=== PATIENT | male | born 1985 | race Caucasian/White ===

== ENCOUNTER 2017-01-21 07:21 | Emergency (ER) | payer OTHER ==
[2017-01-21 07:33] VITALS: BP 110/59; PULSE 80; RESP 20; TEMP 97.7
[2017-01-21] MEDS ORDERED: IBUPROFEN 800 MG TAB PO STA (07:47)
--- NOTE | 2017-01-21 07:54 | ED ---
Lower Extremity Injury HPI - General Chief Complaint: Extremity Injury, Lower Stated Complaint: right knee pain Time Seen by Provider: 01/21/17 07:40 Source: patient, RN notes reviewed Mode of arrival: ambulatory Limitations: no limitations - History of Present Illness Initial Comments: This is a 31-year-old male history of right ankle surgery who states he was chasing his dog last night when he felt a pop in his right knee he didn't think much of it but states last evening he started developing pain to the medial aspect of the anterior knee and 3 having a more pain. He states this morning he has moderate to severe pain sharp in nature it actually increases when he dorsiflexes right foot. He denies any foot ankle injury anything above or below the knee. He has no other injuries reported no other pain. He did not take any pain medication this morning. MD Complaint: knee injury - Related Data Home Medications Medication Instructions Recorded Confirmed HYDROcodone/APAP 10-325MG [[place] 1 tab PO QID 10/14/13 01/21/17 10-325] Ibuprofen [Motrin] 800 mg PO TID PRN 01/21/17 01/21/17 Loratadine [Claritin] 10 mg PO DAILY 01/21/17 01/21/17 Previous Rx's Medication Instructions Recorded Ibuprofen 800 mg PO Q6HR PRN #20 tablet 01/21/17 Allergies Allergy/AdvReac Type Severity Reaction Status Date / Time bee pollen [Bee Pollen] Allergy Unknown Verified 01/21/17 07:58 Review of Systems ROS Statement: Those systems with pertinent positive or pertinent negative responses have been documented in the HPI. ROS Other: All systems not noted in ROS Statement are negative. Past Medical History Additional Past Medical History / Comment(s): arthritis. carpal tunnel History of Any Multi-Drug Resistant Organisms: None Reported Past Surgical History: Orthopedic Surgery Additional Past Surgical History / Comment(s): ankle Past Psychological History: No Psychological Hx Reported Smoking Status: Current every day smoker Past Alcohol Use History: None Reported Past Drug Use History: Marijuana General Exam - General Exam Comments Initial Comments: This is a well-developed well-nourished awake alert oriented 3 male Limitations: no limitations General appearance: alert, in no apparent distress Head exam: Present: atraumatic, normocephalic, normal inspection Eye exam: Present: normal appearance, PERRL, EOMI. Absent: scleral icterus, conjunctival injection, periorbital swelling ENT exam: Present: normal exam, mucous membranes moist Neck exam: Present: normal inspection. Absent: tenderness, meningismus, lymphadenopathy Extremities exam: Present: normal inspection, tenderness, normal capillary refill, other (Tenderness palpation over the anterior medial right knee and some lateral tenderness. No step-off or crepitation no ballottement of the patella. Some mild tenderness of the posterior aspect of the knee to palpation no definite effusions noted.). Absent: full ROM, pedal edema Back exam: Present: full ROM Neurological exam: Present: alert, oriented X3, CN II-XII intact Psychiatric exam: Present: normal affect, normal mood Skin exam: Present: warm, dry, intact, normal color. Absent: rash Course Vital Signs 01/21/17 07:32 Temperature 97.7 F Pulse Rate 80 Respiratory 20 Rate Blood Pressure 110/59 O2 Sat by Pulse 100 Oximetry Medical Decision Making - Medical Decision Making I did discuss the findings with patient he presents with exam consistent with a knee sprain. He will be given Garrett wrap he was offered a knee immobilizer but states he can't tolerate using that I did recommend a knee brace that he can get at any pharmacy. 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 - Radiology Data Radiology results: report reviewed (I did review the imaging and reports no acute findings.), image reviewed Disposition Clinical Impression: Right knee sprain Disposition: HOME SELF-CARE Condition: Good Instructions: Knee Sprain (ED) Prescriptions: Ibuprofen 800 mg PO Q6HR PRN #20 tablet PRN Reason: Pain Referrals: Ana M Farris DO [Primary Care Provider] - 1-2 days Sean Tomlin MD [Medical Doctor] - 1-2 days
--- NOTE | 2017-01-21 08:01 | XR ---
EXAMINATION TYPE: XR knee complete RT DATE OF EXAM: 01/21/2017 CLINICAL HISTORY: Fall off porch injury with right knee pain. TECHNIQUE: Three views of the right knee are obtained. COMPARISON: None. FINDINGS: There is no acute fracture/dislocation evident in right knee. The tri-compartment joint s paces appear within normal limits. The overlying soft tissue appears unremarkable. IMPRESSION: There is no acute fracture or dislocation in the right knee.
== END 2017-01-21 08:16 | disposition home or self-care (01) ==
LOC: EC 07:21
DX: S83.91XA Sprain of unspecified site of right knee, initial encounter (principal); F17.200 Nicotine dependence, unspecified, uncomplicated; Z79.891 Long term (current) use of opiate analgesic; Z79.899 Other long term (current) drug therapy; Z91.030 Bee allergy status; Y93.39 Activity, other involving climbing, rappelling and jumping off
CPT/HCPCS: 99283

== ENCOUNTER 2017-06-15 17:24 | Emergency (ER) | payer OTHER ==
[2017-06-15 17:34] VITALS: BP 131/60; PULSE 78; RESP 18; TEMP 97.6
--- NOTE | 2017-06-15 17:58 | XR ---
EXAMINATION TYPE: XR elbow complete RT DATE OF EXAM: 06/15/2017 CLINICAL HISTORY: Right elbow pain after injury TECHNIQUE: Frontal, lateral and oblique images of the right elbow are obtained. COMPARISON: None FINDINGS: There is no acute fracture/dislocation evident in the right elbow. No abnormal fat pad si gns are seen. The overlying soft tissue appears unremarkable. 1.1 cm oval sclerotic lesion within th e proximal radius is seen with well-defined borders and a narrow zone of transition. This could repre sent a bone island and appears intramedullary however other etiologies are possible. IMPRESSION: There is no acute fracture or dislocation in the right elbow. Nonspecific sclerotic lesi on within the proximal right radius appearing intramedullary and also appearing nonaggressive. Furthe r evaluation MRI could be performed on a nonemergent basis..
--- NOTE | 2017-06-15 18:02 | ED ---
General Adult HPI - General Chief complaint: Extremity Injury, Upper Stated complaint: rt elbow injury Time Seen by Provider: 06/15/17 17:38 Source: patient, RN notes reviewed Mode of arrival: ambulatory Limitations: no limitations - History of Present Illness Initial comments: 31-year-old male presents to the emergency department for a chief complaint of right elbow pain. Patient states that about 3 weeks ago he was walking when he tripped and fell on his right elbow. Patient states it is painful at this time but the pain has mostly resolved. He states he has no pain with range of motion of the right elbow. However it appears more swollen to him and he is painful if he hits at the right way. Patient states he just wants to know if he fractured the elbow. Patient denies any pain in the wrists or shoulders. Patient has a history of rheumatoid arthritis. Patient denies any other complaints at this time including shortness of breath, chest pain, abdominal pain, fevers, or nausea vomiting. - Related Data Home Medications Medication Instructions Recorded Confirmed No Known Home Medications [No 06/15/17 06/15/17 Known Home Medications] Allergies Allergy/AdvReac Type Severity Reaction Status Date / Time bee pollen [Bee Pollen] Allergy Unknown Verified 06/15/17 17:46 Review of Systems ROS Statement: Those systems with pertinent positive or pertinent negative responses have been documented in the HPI. ROS Other: All systems not noted in ROS Statement are negative. Past Medical History Past Medical History: No Reported History Additional Past Medical History / Comment(s): arthritis. carpal tunnel History of Any Multi-Drug Resistant Organisms: None Reported Past Surgical History: Orthopedic Surgery Additional Past Surgical History / Comment(s): ankle Past Psychological History: No Psychological Hx Reported Smoking Status: Current every day smoker Past Alcohol Use History: None Reported Past Drug Use History: Marijuana General Exam Limitations: no limitations Respiratory exam: Present: normal lung sounds bilaterally. Absent: respiratory distress, wheezes, rales, rhonchi, stridor Cardiovascular Exam: Present: regular rate, normal rhythm, normal heart sounds. Absent: systolic murmur, diastolic murmur, rubs, gallop, clicks Extremities exam: Present: full ROM (Of the elbows bilaterally), normal capillary refill (Refill less than 2 seconds in the right upper extremity), joint swelling (Slight joint swelling noted on the right elbow). Absent: tenderness (Slight point tenderness to the right olecranon.), pedal edema, calf tenderness Course Vital Signs 06/15/17 17:33 Temperature 97.6 F Pulse Rate 78 Respiratory 18 Rate Blood Pressure 131/60 O2 Sat by Pulse 98 Oximetry Medical Decision Making - Medical Decision Making 31-year-old male presents the emergency department for a chief complaint of right elbow pain. Patient states he fell onto his elbow about 3 weeks ago. He says the pain is mostly resolved however he has noticed some swelling and has point tenderness of the right elbow. He wants to make sure it is not broken. He does not want to be prescribed anything. Neurovascular intact in the right upper extremity. X-ray of the right elbow was ordered. X-ray of the right elbow demonstrates no acute fracture or dislocation. There is a nonspecific sclerotic lesion within the proximal right radius appearing intramedullary and nonaggressive. patient will be referred to orthopedics. In the meantime he will take ibuprofen for pain relief and was educated on the Rice method of therapy. He will return to the emergency department if symptoms worsen. Otherwise he will follow-up with orthopedics and primary care in 1-2 days. Disposition Clinical Impression: Elbow pain Disposition: HOME SELF-CARE Condition: Good Instructions: RICE Therapy (ED) Additional Instructions: Please follow up with orthopedics in one to 2 days. In the meantime, use ibuprofen for pain relief and follow the rice method of therapy as discussed. Please return to the emergency department if you have worsening symptoms. Referrals: None,Stated [REFERRING] - 1-2 days Anna Reyes, PAC [PHYSICIAN POLITICAL AIDE] - 1-2 days
== END 2017-06-15 18:29 | disposition home or self-care (01) ==
LOC: EC 17:24
DX: M25.521 Pain in right elbow (principal); F17.200 Nicotine dependence, unspecified, uncomplicated; Z91.030 Bee allergy status; W01.0XXA Fall on same level from slipping, tripping and stumbling without subsequent striking against object, initial encounter; Y93.01 Activity, walking, marching and hiking
CPT/HCPCS: 99283

== ENCOUNTER 2017-06-16 13:13 | Emergency (ER) | payer OTHER ==
[2017-06-16 13:17] VITALS: RESP 16
--- NOTE | 2017-06-16 13:47 | ED ---
Psych HPI - General Chief Complaint: Psychiatric Symptoms Stated Complaint: suicidal Time Seen by Provider: 06/16/17 13:19 Source: patient Mode of arrival: ambulatory - History of Present Illness Initial Comments: Is a 31-year-old male who comes emergency Department for suicidal ideation and depression. The patient states that his left him 2 days ago and he has not been able to speak with her and is been very upset about that. He states that he attempted to hang himself with a sweater last night however stopped himself when he heard his kid crying. He states he is not currently being treated for depression however did sign up to see a therapist because of some anger issues. He went there today and was recommended to come to the hospital. The patient does not take any medications at this time. He does have a history of suicide attempt in the past however no inpatient hospitalizations. He didn't lose a child when she was 6 years old in 2011. He's had some depression issues because of that as well. He comes here for psychiatric evaluation. Denies any drinking or drug use today. Does use marijuana regularly. - Related Data Home Medications Medication Instructions Recorded Confirmed Ibuprofen [Motrin] 800 mg PO BID 06/16/17 06/16/17 Loratadine [Claritin] 10 mg PO DAILY 06/16/17 06/16/17 Allergies Allergy/AdvReac Type Severity Reaction Status Date / Time bee pollen [Bee Pollen] Allergy Unknown Verified 06/16/17 13:17 Review of Systems ROS Statement: Those systems with pertinent positive or pertinent negative responses have been documented in the HPI. ROS Other: All systems not noted in ROS Statement are negative. Past Medical History Past Medical History: No Reported History Additional Past Medical History / Comment(s): arthritis. carpal tunnel History of Any Multi-Drug Resistant Organisms: None Reported Past Surgical History: Orthopedic Surgery Additional Past Surgical History / Comment(s): ankle Past Psychological History: No Psychological Hx Reported Smoking Status: Current every day smoker Past Alcohol Use History: None Reported Past Drug Use History: Marijuana General Exam - General Exam Comments Initial Comments: Constitutional: Awake alert Appears comfortable Head: Normocephalic atraumatic Eyes: no conjunctival injection No scleral icterus EOMI Neck: No JVD Supple, no carotid bruits, no neck tenderness Heart: Regular rate rhythm normal S1-S2 no murmurs Lungs: Clear to auscultation bilaterally No wheezing No rales Abdomen: Soft nondistended nontender Extremities: Non edematous DP pulses intact Radial pulses intact Neuro: A&Ox3 No focal neurologic deficits Psych: Depressed, tearful, suicidal ideation with a plan Limitations: no limitations Course Vital Signs 06/16/17 06/16/17 13:16 15:31 Temperature 97.6 F 97.8 F Pulse Rate 77 72 Respiratory 16 16 Rate Blood Pressure 124/56 128/80 O2 Sat by Pulse 99 98 Oximetry Medical Decision Making - Medical Decision Making This is a 31-year-old male came in emergency department for suicidal ideation. The patient was evaluated by [facility] who stated that they did not feel that this was a suicide attempt because of depression. They stated that it was circumstantial and do not feel that this is something that he would likely repeat. They stated that they spoke with him at length and he feels comfortable going home. He contracted for safety and is going to stay with his brother. He's got his establish follow-up with his therapist and also is going to see his psychiatrist next week and was instructed to return emergency Department if he has any worsening thoughts or feelings. All questions were answered. - Lab Data Lab Results 06/16/17 Range/Units 14:19 Urine Opiates Screen Not Detected (NotDetected) Ur Oxycodone Screen Not Detected (NotDetected) Urine Methadone Screen Not Detected (NotDetected) Ur Propoxyphene Screen Not Detected (NotDetected) Ur Barbiturates Screen Not Detected (NotDetected) U Tricyclic Antidepress Not Detected (NotDetected) Ur Phencyclidine Scrn Not Detected (NotDetected) Ur Amphetamines Screen Not Detected (NotDetected) U Methamphetamines Scrn Not Detected (NotDetected) U Benzodiazepines Scrn Not Detected (NotDetected) Urine Cocaine Screen Not Detected (NotDetected) U Marijuana (THC) Screen Detected H (NotDetected) Disposition Clinical Impression: Depression, Adjustment reaction Disposition: HOME SELF-CARE Condition: Stable Instructions: Depression (ED) Additional Instructions: Follow up with your psychiatrist next week. Return if you feel like you are having more suicidal thoughts or any worsening symptoms. Referrals: Ana M Farris DO [Primary Care Provider] - 1-2 days
[2017-06-16 14:39] LABS: Amphetamine Screen,Urine Not Detected (NotDetected); Barbiturate Screen,Urine Not Detected (NotDetected); Benzodiazepines Screen,Urine Not Detected (NotDetected); Cocaine Screen,Urine Not Detected (NotDetected); Methadone Screen, Urine Not Detected (NotDetected); Opiate Screen,Urine Not Detected (NotDetected); Oxycodone Screen, Urine Not Detected (NotDetected); Phencyclidine Screen,Urine Not Detected (NotDetected); Tricyclic Antidepressant,Urine Not Detected (NotDetected); Urn Cannabinoid Scrn Detected (NotDetected)
[2017-06-16 15:32] VITALS: BP 128/80; PULSE 72; TEMP 97.8
== END 2017-06-16 15:31 | disposition home or self-care (01) ==
LOC: EC 13:13
DX: F32.9 Major depressive disorder, single episode, unspecified (principal); F43.20 Adjustment disorder, unspecified; M19.90 Unspecified osteoarthritis, unspecified site; G56.00 Carpal tunnel syndrome, unspecified upper limb; F17.200 Nicotine dependence, unspecified, uncomplicated; Z91.030 Bee allergy status; Z79.1 Long term (current) use of non-steroidal anti-inflammatories (NSAID); Z79.899 Other long term (current) drug therapy
CPT/HCPCS: 80306; 82075; 99285